=== PATIENT | female | born 1975 | race Caucasian/White ===

== ENCOUNTER 2018-04-26 15:55 | Inpatient (IN) | payer OTHER ==
--- NOTE | 2018-04-26 16:19 | ED PDOC ---
Arrival/HPI - General Chief Complaint: Weakness/Neurological Deficit Time Seen by Provider: 04/26/18 16:15 Historian: Patient - History of Present Illness Narrative History of Present Illness (Text): 04/26/18 16:38 Patient is a 43 year old female whose past medical history includes lupus, and rheumatic fever, who presents to the Emergency department complaining of left upper extremity and facial numbness which has been intermittent since 6 days ago. Patient reports that her first episode of left facial and upper extremity numbness occurred 6 days ago while she was sitting down and using the phone. At that time she also experienced dysarthria, and her symptoms resolved in less than a minute. She couldn't go to the hospital at that time because a family member had an appointment at the hospital the following day. While waiting at the hospital for the family member she experienced another episode of left upper extremity numbness which lasted for 2-3 hours. Today, patient was last well approximately 8 hours ago prior to experiencing left arm numbness and weakness. She also reports that approximately an hour ago she also started experiencing chest pressure. She currently states that her chest pressure, and left arm weakness and numbness has improved but not resolved. Notes that she is still experiencing slight left arm weakness and numbness. Patient denies fevers , chills, cough, shortness of breath, dyspnea on exertion, abdominal pain, nausea, vomiting, diarrhea, back pain, neck pain, headache, dizziness, or any other complaint. Of note patient states that she used to take medication for Lupus but doesn't currently take anything. PMD: not affiliated Time/Duration: Other (onset less than 8 hours ago) Symptom Onset: Sudden Symptom Course: Improving, Intermittent Context: Home Past Medical History - Provider Review Nursing Documentation Reviewed: Yes - Infectious Disease Hx of Infectious Diseases: None - Reproductive Menopause: Yes - Cardiac Hx Cardiac Disorders: No - Endocrine/Metabolic Hx Endocrine Disorders: Yes Hx Systemic Lupus Erythematosus: Yes - Musculoskeletal/Rheumatological Hx Falls: No - Gastrointestinal Hx Gastroesophageal Reflux: Yes - Psychiatric Hx Substance Use: No - Anesthesia Hx Anesthesia Reactions: No Family/Social History - Physician Review Nursing Documentation Reviewed: Yes Family/Social History: No Known Family HX Smoking Status: Former Smoker Hx Alcohol Use: No (social) Hx Substance Use: No Allergies/Home Meds Allergies/Adverse Reactions: Allergies Penicillins Allergy (Unknown, Verified 07/04/18 19:22) NAUSEA Home Medications: Home Meds Medication Instructions Recorded Confirmed No Known Home Med 08/31/17 04/26/18 Review of Systems - Physician Review All systems were reviewed & negative as marked: Yes - Review of Systems Constitutional: absent: Fevers Neurological: absent: Headache Physical Exam - Physical Exam Narrative Physical Exam (Text): 04/26/18 16:52 Constitutional: No acute distress. Head: Normocephalic. Atraumatic. Eyes: PERRL. ENT: Moist mucous membranes. Neck: Supple. Cardiovascular: Regular rate. Chest: No tenderness. Respiratory: Clear to auscultation bilaterally. GI: Soft. Nontender. Nondistended. Back: No CVA tenderness. Musculoskeletal: No tenderness or swelling of extremities. Skin: No rash. Neurologic: Alert. Left arm 4+/5 motor function. Subjective decreased sensation to light touch. Cranial nerve II-XII intact. Speech normal. Vital Signs Reviewed: Yes Vital Signs Temp Pulse Resp BP Pulse Ox 04/26/18 19:43 98 F 85 18 127/73 99 04/26/18 18:24 72 18 130/77 100 04/26/18 18:09 75 18 127/76 100 04/26/18 17:54 82 18 117/64 100 04/26/18 17:50 72 18 124/70 100 04/26/18 17:39 76 18 124/76 100 04/26/18 17:24 71 18 121/59 L 98 04/26/18 17:09 86 15 128/47 L 100 04/26/18 16:58 72 18 137/71 100 04/26/18 16:29 82 15 142/95 H 98 04/26/18 16:06 98.2 F 88 18 143/86 99 Temperature: Afebrile Blood Pressure: Normal Pulse: Regular Respiratory Rate: Normal Appearance: Positive for: Well-Appearing Mental Status: Positive for: Alert and Oriented X 3 Medical Decision Making ED Course and Treatment: 04/26/18 16:18 Impression: Patient is a 43 year old female who presents to the Emergency department complaining of intermittent left arm weakness and numbness, which started 6 days ago, and recent chest pressure. Differential Diagnosis included but are not limited to: CVA vs. TIA vs. ACS vs. Anxiety Plan: --EKG --Labs and cardiac enzyme --Blood work --Head CT without contrast --Chest X-ray --Aspirin --IV fluids -- Reassess and disposition Prior Visits: Notes and results from previous visits were reviewed. Progress Notes: 04/26/18 16:12 Code stroke called. 04/26/18 16:16 evaluated the patient and recommended head CT without contrast. He also recommends If CT is negative then Aspirin, echo, and hypercoagulable workup as inpatient. 04/26/18 16:27 called to state that head CT was negative. 04/26/18 16:[address] without Contrast: Dictator : Han Ballesteros MD IMPRESSION: No acute intracranial abnormalities. No significant findings to account for the clinical presentation. 04/26/18 17:09 Chest X-ray: Dictator : Han Ballesteros MD COMPARISON: 08/31/2017 IMPRESSION: No active disease. No significant interval change compared to the prior examination(s). 04/26/18 17:45 Discussed case with , who is aware and agrees to accept the patient under his service. 04/26/18 EKG shows NSR at [address]/T wave changes. Interpreted by me. - Lab Interpretations Lab Results: 04/26/18 16:15 04/26/18 16:15 Lab Results 04/26/18 17:33: Blood Type Confirm O POSITIVE 04/26/18 17:00: PT 11.3, INR 0.99, APTT 28.9 04/26/18 16:45: Beta HCG, Quant < 2.39 04/26/18 16:45: Blood Type O POSITIVE, Antibody Screen Negative, BBK History Checked No verified bt 04/26/18 16:15: Hemoglobin A1c 5.4 04/26/18 16:15: Sodium 141, Potassium 3.7, Chloride 106, Carbon Dioxide 25, Anion Gap 14, BUN 12, Creatinine 0.6 L, Est GFR ( Amer) > 60, Est GFR ( Non-Af Amer) > 60, Random Glucose 102, Calcium 9.4, Total Bilirubin 0.5, AST 24 , ALT 10, Alkaline Phosphatase 76, Troponin I < 0.01, Total Protein 7.4, Albumin 4.3, Globulin 3.1, Albumin/Globulin Ratio 1.4, Triglycerides 154, Cholesterol 213 H, LDL Cholesterol Direct 121, HDL Cholesterol 58 04/26/18 16:15: WBC 4.3 L D, RBC 3.93, Hgb 11.9 L, Hct 35.7 L, MCV 90.8, MCH 30.3, MCHC 33.3, RDW 13.1, Plt Count 146, MPV 13.9 H, Gran % 50.9, Lymph % (Auto ) 41.0 H, [place] % (Auto) 5.3, Eos % (Auto) 2.1, Baso % (Auto) 0.7, Gran # 2.20, Lymph # (Auto) 1.8, [place] # (Auto) 0.2, Eos # (Auto) 0.1, Baso # (Auto) 0.03 I have reviewed the lab results: Yes - RAD Interpretation Radiology Orders: 04/26/18 16:15 HEAD W/O (CODE STROKE) [CT] Stat 04/26/18 16:20 CHEST TWO VIEWS (PA/LAT) [RAD] Stat Squad Boss: Radiologist - EKG Interpretation Interpreted by ED Physician: Yes Type: 12 lead EKG - Medication Orders Current Medication Orders: Aspirin (Aspirin Chewable) 81 mg PO DAILY SYLVIE Atorvastatin Calcium (Lipitor) 40 mg PO DIN SYLVIE Sodium Chloride (Sodium Chloride 0.9%) 1,000 mls @ 100 mls/hr IV .Q10H SYLVIE Last Admin: 04/26/18 16:55 Dose: 100 mls/hr eMAR Start Stop Document 04/26/18 16:55 HI (Rec: 04/26/18 16:55 HI [id number]) Intravenous Solution Start Date 04/26/18 Start Time 16:55 Discontinued Medications Aspirin (Aspirin) 325 mg PO STAT STA Stop: 04/26/18 16:31 Last Admin: 04/26/18 16:53 Dose: 325 mg NIHSS Scale ([place]) Time Performed: 16:12 - How Severe is the Stoke Baseline Level of Consciousness: 0=Alert LOC to Questions: 0=Both comments correct LOC to commands: 0=Obeys both correctly Best Gaze: 0=Normal Visual: 0=No visual loss Facial: 0=Normal Motor Arm - Left: 0=No drift Motor Arm - Right: 0=No drift Motor Leg - Left: 0=No drift Motor Leg - Right: 0=No drift Limb Ataxia: 0=Absent Sensory: 1=Mild to moderate loss Best Language: 0=No aphasia Dysarthia: 0=Normal articulation Extinction & Inattention (Neglect): 0=Normal, no object Score: 1 Risk Level: Minor Stroke Risk rTPA Inclusion/Exclusion - Refusal of Treatment Patient Refused Treatment: No - Inclusion Criteria for Altepase Patient is 18 years or Older: Yes The Clinical Diagnosis of Ischemic Stroke That is Causing a Potentially Disabling Neurological Deficit: Yes Time of Onset is Well Established to be Less Than 270 Minute Before Treatment Would Begin: No Risk/Benefit Discussed With Patient/Family Member Present: Yes - Scribe Statement The provider has reviewed the documentation as recorded by the Scribe [place] Provider Scribe Attestation: All medical record entries made by the Scribe were at my direction and personally dictated by me. I have reviewed the chart and agree that the record accurately reflects my personal performance of the history, physical exam, medical decision making, and the department course for this patient. I have also personally directed, reviewed, and agree with the discharge instructions and disposition. Disposition/Present on Arrival - Present on Arrival Any Indicators Present on Arrival: No History of DVT/PE: No History of Uncontrolled Diabetes: No Urinary Catheter: No History of Decub. Ulcer: No History Surgical Site Infection Following: None - Disposition Have Diagnosis and Disposition been Completed?: Yes Diagnosis: Numbness of left hand Disposition: HOSPITALIZED Disposition Time: 17:30 Patient Plan: Admission, Telemetry Patient Problems: Current Active Problems Problem Status Onset Numbness of left hand Acute Condition: FAIR
--- NOTE | 2018-04-26 16:30 | CT ---
PROCEDURE: CT HEAD WITHOUT CONTRAST. HISTORY: code stroke COMPARISON: None available. TECHNIQUE: Axial computed tomography images were obtained through the head/brain without intravenous contrast. Radiation dose: Total exam DLP = 882.53 MGy-cm. This CT exam was performed using one or more of the following dose reduction techniques: Automated exposure control, adjustment of the mA and/or kV according to patient size, and/or use of iterative reconstruction technique. FINDINGS: HEMORRHAGE: No intracranial hemorrhage. BRAIN: No mass effect or edema. No atrophy or chronic microvascular ischemic changes. VENTRICLES: Unremarkable. No hydrocephalus. CALVARIUM: Unremarkable. PARANASAL SINUSES: Unremarkable as visualized. No significant inflammatory changes. MASTOID AIR CELLS: Unremarkable as visualized. No inflammatory changes. OTHER FINDINGS: None. IMPRESSION: No acute intracranial abnormalities. No significant findings to account for the clinical presentation. Code stroke protocol: Study completed 16:22 Radiologist notified 16:22 Results conveyed verbally at 16:27 I discussed the findings with the attending physician in the emergency department Dr. Todd Alas. Interpretation finalized and available for review 16:29
[2018-04-26 16:41] LABS: BASO # 0.03 K/mm3 (0.0-2.0); BASO % 0.7 % (0.0-3.0); EOS # 0.1 (0.0-0.7); EOS % 2.1 % (1.5-5.0); GRAN # 2.2 (1.4-6.5); GRAN % 50.9 % (50.0-68.0); HEMOGLOBIN 11.9 g/dL (12.0-16.0); LYMPH # 1.8 (1.2-3.4); MEAN CELL VOLUME 90.8 fl (80.0-105.0); MEAN CORPUSCULAR HEMOGLOBIN 30.3 pg (25.0-35.0); MEAN CORPUSCULAR HGB CONC 33.3 g/dl (31.0-37.0); MEAN PLATELET VOLUME 13.9 fl (7.0-11.0); MONO # 0.2 (0.1-0.6); MONO % 5.3 % (1.0-6.0); RBC 3.93 10^6/uL (3.5-6.1); RED CELL DISTRIBUTION WIDTH 13.1 % (11.5-14.5); WHITE BLOOD COUNT 4.3 10^3/ul (4.5-11.0)
--- NOTE | 2018-04-26 16:43 | CP.PCM.CON ---
History of Present Illness - History of Present Illness History of Present Illness: Neurology Consultation Note: Ms. Arrington is a 43-year-old woman with a past medical history of SLE (not on medications), who states that last , as she was taking her daughter to the hospital for her brain surgery, she felt left arm, face numbness and had speech difficulty. This resolved completely. She did not come to the hospital because of her daughter's situation. Then this morning, she had left hand numbness and this concerned her so she came to the ED. She states that it is mostly in her thumb. The rest of the arm was unaffected when I saw her. NIHSS was maybe a 1. She was outside the time window for IV tPA since her symptoms started over 4.5 hours ago and her symptoms are very mild. CT scan of the head did not show any acute findings. Review of Systems - Review of Systems All systems: reviewed and no additional remarkable complaints except Past Patient History - Infectious Disease Hx of Infectious Diseases: None - Past Social History Smoking Status: Former Smoker - CARDIAC Hx Cardiac Disorders: No - ENDOCRINE/METABOLIC Hx Endocrine Disorders: Yes Hx Systemic Lupus Erythematosus: Yes - MUSCULOSKELETAL/RHEUMATOLOGICAL Hx Falls: No - GASTROINTESTINAL Hx Gastroesophageal Reflux: Yes - PSYCHIATRIC Hx Substance Use: No - ANESTHESIA Hx Anesthesia Reactions: No Meds Allergies/Adverse Reactions: Allergies Allergy/AdvReac Type Severity Reaction Status Date / Time Penicillins Allergy URTICARIA Verified 08/31/17 14:35 - Medications Medications: Current Medications Aspirin (Aspirin) 325 mg PO STAT STA Stop: 04/26/18 16:31 Sodium Chloride (Sodium Chloride 0.9%) 1,000 mls @ 100 mls/hr IV .Q10H SYLVIE Physical Exam - Neurological Exam Neurological exam: Alert, CN II-XII Intact, Normal Gait, Oriented x3, Reflexes Normal Additional comments: CN 2-12 are intact, no facial asymmetry and no dysarthria/aphasia noted. Mild left hand numbness as compared with right. Otherwise, no focal sensory changes, no weakness, no ataxia, no visual changes, reflexes are normal. Results - Vital Signs Recent Vital Signs: Last Vital Signs Temp 98.2 F 04/26/18 16:06 Pulse 88 04/26/18 16:06 Resp 18 04/26/18 16:06 BP 143/86 04/26/18 16:06 Pulse Ox 99 04/26/18 16:06 Assessment & Plan (1) Numbness of left hand Assessment and Plan: This is unlikely to be a stroke, but since she had another episode on that involved complete left side numbness and dysarthria, further work-up is warranted. Her symptoms are not completely resolved this time, so we cannot call this a TIA at this point. I recommend the followin. Telemetry 2. MRI brain without contrast 3. Echocardiogram 4. Aspirin 81 mg daily (first dose now) 5. PT/OT eval 6. Check B12, folate, HbA1c, Lipid panel, homocysteine, hypercoagulable work-up 7. Fluids with NS at 100 ml/hr 8. Permissive HTN (only treat BP that is higher than 220/110 mm Hg for the next 24 hours) 9. Case management and case management social worker consult Thank you. Status: Acute Priority: High
[2018-04-26 16:51] LABS: ALB/GLOB RATIO 1.4 (1.1-1.8); ALBUMIN 4.3 g/dL (3.0-4.8); ALT/SGPT 10 U/L (7-56); AST/SGOT 24 U/L (14-36); BLOOD UREA NITROGEN 12 mg/dL (7-21); CALCIUM 9.4 mg/dL (8.4-10.5); GFR AFRICAN-AMERICAN > 60; GFR NON-AFRICAN AMERICAN > 60; HDL CHOLESTEROL 58 mg/dL (29-60)
[2018-04-26] MEDS: Sodium Chloride 0.9% 1,000 ML IV SCH (16:55)
[2018-04-26 17:02] LABS: LDL CHOLESTEROL 121 mg/dL (0-129)
[2018-04-26 17:05] LABS: TROPONIN I < 0.01 ng/mL
--- NOTE | 2018-04-26 17:07 | RAD ---
HISTORY: code stroke COMPARISON: 08/31/2017 TECHNIQUE: Chest PA and lateral FINDINGS: LUNGS: No active pulmonary disease. PLEURA: No significant pleural effusion identified. No pneumothorax apparent. CARDIOVASCULAR: Normal. OSSEOUS STRUCTURES: No significant abnormalities. VISUALIZED UPPER ABDOMEN: Normal. OTHER FINDINGS: None. IMPRESSION: No active disease. No significant interval change compared to the prior examination(s).
[2018-04-26 17:13] LABS: INR 0.99 (0.93-1.08); PARTIAL THROMBOPLASTIN TIME 28.9 Seconds (25.1-36.5); PROTHROMBIN TIME 11.3 SECONDS (9.4-12.5)
--- NOTE | 2018-04-26 18:45 | CP.PCM.HP ---
<Nazario Ramos - Last Filed: 04/26/18 21:31> History of Present Illness - History of Present Illness History of Present Illness: CC: Left upper extremity and left facial numbness, chest tighness Ms. Arrington is a 43 year old female with past medical history of lupus not on medication, migraines, panic attacks, and rheumatic fever as a child. Patient presents to the emergency department complaining of facial numbness and left upper extremity tingling and numbness. Patient stated that this was the second time this has happened. The first time was 6 days ago while she was sitting down and on the phone where she suddenly felt numbness to both her left side of the face and left arm. The patient also experienced dysarthria and was mumbling on the phone. The patient stated that her symptoms lasted for less than a minute. She did not go to the hospital because one of her children was sick and had an appointment to go to the hospital the following day. This morning, the patient started having the facial numbness and arm numbness and decided to go to the emergency room. She is also complaining of chest tightness that started a few hours ago. Patient states that her chest tightness, left facial numbness, and left extremity numbness has improved but not yet resolved. Patient denies having any fevers, chills, cough, shortness of breath, abdominal pain, nausea, vomiting, diarrhea, or dysuria. At the time of encounter with the patient she has no complaint of chest tightness. In Ed, patient afebrile, blood pressure was 143/86. Code stroke was called, patient was evaluated by neurologist. Head CT was negative. 12 point ROS obtained and negative, except as per HPI. PMH: Lupus not on medication, migraines, panic attacks, and rheumatic fever as a child PSH: Removal of cyst on the chest All: Penicillin FHx: Father had rheumatic fever. SHx: Former smoker, denies alcohol/Illicits/IVDA OBHx: LMP was 4 months ago. test was done and was negative and that she has irregular menstrual cycle. PMD: Dr. Ron in [place] [phone] Rheum: Dr. Gomes Meds: Multivitamins Present on Admission - Present on Admission Any Indicators Present on Admission: No History of DVT/PE: No History of Uncontrolled Diabetes: No Urinary Catheter: No Decubitus Ulcer Present: No History Surgical Site Infection Following: None Review of Systems - Review of Systems Review of Systems: as per HPI - Constitutional Constitutional: As Per HPI Past Patient History - Past Social History Smoking Status: Former Smoker Chewing Tobacco Use: No Cigar Use: No Occupation: Unemployed Alcohol: None Drugs: Denies - CARDIAC Hx Cardiac Disorders: No - PULMONARY Hx Respiratory Disorders: No - NEUROLOGICAL Hx Neurological Disorder: Yes Hx Migraine: Yes - HEENT Hx HEENT Problems: No - RENAL Hx Chronic Kidney Disease: No - ENDOCRINE/METABOLIC Hx Endocrine Disorders: Yes Hx Systemic Lupus Erythematosus: Yes - HEMATOLOGICAL/ONCOLOGICAL Hx Blood Disorders: No - INTEGUMENTARY Hx Dermatological Problems: No - MUSCULOSKELETAL/RHEUMATOLOGICAL Hx Musculoskeletal Disorders: Yes (SLE) - GASTROINTESTINAL Hx Gastrointestinal Disorders: No - GENITOURINARY/GYNECOLOGICAL Hx Genitourinary Disorders: No - PSYCHIATRIC Hx Psychophysiologic Disorder: Yes Hx Panic Symptoms: Yes Hx Substance Use: No - SURGICAL HISTORY Hx Surgeries: Yes (Removal of chest cyst) - ANESTHESIA Hx Anesthesia Reactions: No Meds Allergies/Adverse Reactions: Allergies Allergy/AdvReac Type Severity Reaction Status Date / Time Penicillins Allergy Unknown NAUSEA Verified 04/26/18 19:22 Physical Exam - Constitutional Appears: Well, No Acute Distress - Head Exam Head Exam: ATRAUMATIC, NORMAL INSPECTION - Eye Exam Eye Exam: Normal appearance, PERRL - ENT Exam ENT Exam: Mucous Membranes Moist - Neck Exam Neck exam: Positive for: Normal Inspection - Respiratory Exam Respiratory Exam: Clear to Auscultation Bilateral, NORMAL BREATHING PATTERN - Cardiovascular Exam Cardiovascular Exam: REGULAR RHYTHM, +S1, +S2 - GI/Abdominal Exam GI & Abdominal Exam: Normal Bowel Sounds, Soft. absent: Tenderness - Extremities Exam Extremities exam: Positive for: normal inspection. Negative for: calf tenderness Additional comments: no cyanosis, no edema - Neurological Exam Neurological exam: Alert, Oriented x3 Additional comments: No facial asymmetry, no dysarthria or aphasia Upper and lower extremity muscle strength 5/5 bilaterally No sensory deficit of the left hand - Psychiatric Exam Psychiatric exam: Normal Affect, Normal Mood - Skin Skin Exam: Dry, Normal Color, Warm Results - Vital Signs Recent Vital Signs: Last Vital Signs Temp 98.2 F 04/26/18 16:06 Pulse 88 04/26/18 16:06 Resp 18 04/26/18 16:06 BP 143/86 04/26/18 16:06 Pulse Ox 99 04/26/18 16:06 - Labs Result Diagrams: 04/26/18 16:15 04/26/18 16:15 Labs: Laboratory Results - last 24 hr 04/26/18 17:56 Urine HCG, Qual Negative Assessment & Plan - Assessment and Plan (Free Text) Assessment: Assessment: 43 year old female patient with PMH of SLE not on medication, migraines, rheumatic fever, and panic attacks presents for left facial and left upper extremity numbness and chest tightness. Left facial and left upper extremity numbness - Rule out stroke vs TIA - Head CT negative - ASA - NIHSS was 1 - Neuro consulted. recs are appreciated Chest tightness - 2/2 panic attacks. r/o ACS - Chest xray negative - EKG: NSR at [address]/T wave changes, no arrhythmia - TroponinI negative in the ED, will trend troponin. - ASA ordered already SLE - Not on medication, patient was on medication but stopped taking them 3 years ago due to hyperpigmentation of the face. - Hypercoagulable panel ordered - Patient sees a dental manager outside- Dr. Gomes Hyperlipidemia - Atorvastatin 40mg - Date & Time Date: 04/26/18 Time: 19:31 <Josy Rothman - Last Filed: 04/27/18 00:46> Results - Vital Signs Recent Vital Signs: Last Vital Signs Temp 98 F 04/26/18 23:16 Pulse 62 04/26/18 23:16 Resp 18 04/26/18 23:16 BP 114/72 04/26/18 23:16 Pulse Ox 99 04/26/18 19:43 - Labs Result Diagrams: 04/26/18 16:15 04/26/18 16:15 Labs: Laboratory Results - last 24 hr 04/26/18 17:56 Urine HCG, Qual Negative Attending/Attestation - Attestation I have personally seen and examined this patient.: Yes I have fully participated in the care of the patient.: Yes I have reviewed all pertinent clinical information: Yes Notes (Text): 04/27/18 00:41 Patient seen with the resident at the bedside. Addendum: GI/DVT prophylaxis covered with Protonix and SCDs.Agree with assessment and plan of treatment.
[2018-04-26 19:45] VITALS: O2SAT 99
[2018-04-27] MEDS: Sodium Chloride 0.9% 1,000 ML IV SCH (05:34)
[2018-04-27 05:58] LABS: MEAN CELL VOLUME 90.4 fl (80.0-105.0); MEAN CORPUSCULAR HEMOGLOBIN 30.2 pg (25.0-35.0); MEAN CORPUSCULAR HGB CONC 33.4 g/dl (31.0-37.0); MEAN PLATELET VOLUME 13.4 fl (7.0-11.0); RBC 3.97 10^6/uL (3.5-6.1); RED CELL DISTRIBUTION WIDTH 13.2 % (11.5-14.5)
[2018-04-27] MEDS ORDERED: Pantoprazole 40 mg EC Tab PO SCH (06:00)
[2018-04-27 06:03] VITALS: BP 117/75; RESP 19; TEMP 98.5
[2018-04-27 06:11] LABS: BLOOD UREA NITROGEN 8 mg/dL (7-21); GFR AFRICAN-AMERICAN > 60; GFR NON-AFRICAN AMERICAN > 60
[2018-04-27 06:21] LABS: TROPONIN I < 0.01 ng/mL
[2018-04-27 10:18] VITALS: PULSE 61
[2018-04-27 12:15] LABS: FOLATE 16.3 ng/mL
--- NOTE | 2018-04-27 12:48 | CARD ---
APPROVED REPORT EKG Measurement Heart [id number] <Conclusion> Normal sinus rhythm Small inferior q waves Normal ECG
--- NOTE | 2018-04-27 16:41 | CP.PCM.DIS ---
Provider - Provider Date of Admission: 04/26/18 17:52 Attending physician: Hyun Curran MD [place] [facility] Course - Lab Results Lab Results: Most Recent Lab Values WBC 5.0 10^3/ul (4.5-11.0) 04/27/18 05:35 RBC 3.97 10^6/uL (3.5-6.1) 04/27/18 05:35 Hgb 12.0 g/dL (12.0-16.0) 04/27/18 05:35 Hct 35.9 % (36.0-48.0) L 04/27/18 05:35 MCV 90.4 fl (80.0-105.0) 04/27/18 05:35 MCH 30.2 pg (25.0-35.0) 04/27/18 05:35 MCHC 33.4 g/dl (31.0-37.0) 04/27/18 05:35 RDW 13.2 % (11.5-14.5) 04/27/18 05:35 Plt Count 134 10^3/uL (120.0-450.0) 04/27/18 05:35 MPV 13.4 fl (7.0-11.0) H 04/27/18 05:35 Gran % 50.9 % (50.0-68.0) 04/26/18 16:15 Lymph % (Auto) 41.0 % (22.0-35.0) H 04/26/18 16:15 [place] % (Auto) 5.3 % (1.0-6.0) 04/26/18 16:15 Eos % (Auto) 2.1 % (1.5-5.0) 04/26/18 16:15 Baso % (Auto) 0.7 % (0.0-3.0) 04/26/18 16:15 Gran # 2.20 (1.4-6.5) 04/26/18 16:15 Lymph # (Auto) 1.8 (1.2-3.4) 04/26/18 16:15 [place] # (Auto) 0.2 (0.1-0.6) 04/26/18 16:15 Eos # (Auto) 0.1 (0.0-0.7) 07/04/18 16:15 Baso # (Auto) 0.03 K/mm3 (0.0-2.0) 04/26/18 16:15 PT 11.3 SECONDS (9.4-12.5) 04/26/18 17:00 INR 0.99 (0.93-1.08) 04/26/18 17:00 APTT 28.9 Seconds (25.1-36.5) 04/26/18 17:00 Sodium 140 mmol/L (132-148) 04/27/18 05:35 Potassium 3.8 mmol/L (3.6-5.0) 04/27/18 05:35 Chloride 108 mmol/L (98-107) H 04/27/18 05:35 Carbon Dioxide 22 mmol/L (21-33) 04/27/18 05:35 Anion Gap 14 (10-20) 04/27/18 05:35 BUN 8 mg/dL (7-21) 04/27/18 05:35 Creatinine 0.6 mg/dl (0.7-1.2) L 04/27/18 05:35 Est GFR ( Amer) > 60 04/27/18 05:35 Est GFR (Non-Af Amer) > 60 04/27/18 05:35 POC Glucose (mg/dL) 81 mg/dL (65-110) 04/27/18 07:26 Random Glucose 87 mg/dL (70-110) 04/27/18 05:35 Hemoglobin A1c 5.4 % (4.2-6.5) 04/27/18 05:35 Calcium 9.0 mg/dL (8.4-10.5) 04/27/18 05:35 Total Bilirubin 0.5 mg/dL (0.2-1.3) 04/26/18 16:15 AST 24 U/L (14-36) 04/26/18 16:15 ALT 10 U/L (7-56) 04/26/18 16:15 Alkaline Phosphatase 76 U/L (38-126) 04/26/18 16:15 Troponin I < 0.01 ng/mL 04/27/18 05:35 Total Protein 7.4 g/dL (5.8-8.3) 04/26/18 16:15 Albumin 4.3 g/dL (3.0-4.8) 04/26/18 16:15 Globulin 3.1 gm/dL 04/26/18 16:15 Albumin/Globulin Ratio 1.4 (1.1-1.8) 04/26/18 16:15 Triglycerides 154 mg/dL (35-160) 04/26/18 16:15 Cholesterol 213 mg/dL (130-200) H 04/26/18 16:15 LDL Cholesterol Direct 121 mg/dL (0-129) 04/26/18 16:15 HDL Cholesterol 58 mg/dL (29-60) 04/26/18 16:15 Vitamin B12 371 pg/mL (239-931) 04/27/18 05:35 Folate 16.3 ng/mL 04/27/18 05:35 TSH 3rd Generation 2.07 mIU/mL (0.46-4.68) 04/27/18 08:15 Beta HCG, Quant < 2.39 mIU/mL (0-6.15) 04/26/18 16:45 Urine HCG, Qual Negative (NEGATIVE) 04/26/18 17:56 Blood Type O POSITIVE 04/26/18 16:45 Blood Type Confirm O POSITIVE 04/26/18 17:33 Antibody Screen Negative 04/26/18 16:45 BBK History Checked No verified bt 04/26/18 16:45 Discharge Exam - Head Exam Head Exam: ATRAUMATIC, NORMAL INSPECTION Discharge Plan - Follow Up Plan Condition: FAIR Disposition: HOME/ ROUTINE
--- NOTE | 2018-04-27 16:55 | MRI ---
PROCEDURE: MRI BRAIN WITHOUT CONTRAST HISTORY: r/o CVA COMPARISON: None. TECHNIQUE: Multiplanar, multisequence MR images of the brain were obtained without intravenous contrast enhancement. FINDINGS: HEMORRHAGE: None DWI: No evidence of an acute or early subacute infarction. BRAIN PARENCHYMA: Intrinsic signal throughout the nye and white matter structures above below the tentorium appears within normal limits including the brainstem. There is no mass effect, parenchymal edema or loss of the corticomedullary differentiation. Midline brain anatomy appears within normal limits including the corpus callosum, brainstem and craniocervical junction. There is no suspicious extra-axial fluid collection identified. VENTRICLES: Unremarkable. No hydrocephalus. CRANIUM: Unremarkable. ORBITS: Grossly unremarkable. PARANASAL SINUSES/MASTOIDS: Clear VASCULAR SYSTEM: Skull base flow voids intact. OTHER FINDINGS: None. IMPRESSION: Unremarkable non contrast enhanced MRI of the brain.
--- NOTE | 2018-04-27 17:24 | CON ---
REASON FOR CONSULTATION: Followup cardiac evaluation, chest tightness and tingling sensation in both hands. BRIEF CLINICAL HISTORY: This is a 43-year-old female with past medical history significant for migraine, questionable history of rheumatic heart disease as a young, who had last 1 week stressful situation at home. Daughter was going for brain surgery for pituitary tumor and she noticed numbness of the left side of the face and tingling sensation in the hand and then slurring of speech last , which completely recovered very fast, the slurring, but numbness took a little time and after that it completely resolved as well. The patient did not seek any medical help because the daughter has to go for surgery in the morning. Since then, the patient has been fairly stable. The patient's daughter's surgery went well, but yesterday the patient has tingling sensation in both hands and some tightness in the chest, so came to the emergency room. Denies any prior episode of chest pain. Denies any prior episode of shortness of breath or palpitation or dyspnea on exertion. The patient lives in an apartment in second floor, takes stairs, denies any chest pain. PAST MEDICAL HISTORY: Significant for migraine, takes Tylenol every now and then; questionable history of rheumatic fever as a child. FAMILY HISTORY: Significant for rheumatic heart disease, valvular heart disease in the father. No history of coronary artery disease or diabetes in family. SOCIAL HISTORY: The patient does smoke. Denies any history of alcohol abuse. Denies any substance abuse. CURRENT MEDICATIONS: Tylenol off and on. REVIEW OF SYSTEMS: As per HPI. PHYSICAL EXAMINATION: VITAL SIGNS: Height of the patient 5 feet and 4 inches. Weight of the patient 140 pounds. Body mass index 24.1 kg/m2. Rest of the examination, vital signs as follows; temperature afebrile, heart rate 54, blood pressure 117/75. HEENT: PERRLA. Extraocular muscles intact. NECK: Supple. No carotid bruit. No thyromegaly. CHEST: Clear to auscultation. HEART: S1 and S2 regular. ABDOMEN: Soft. EXTREMITIES: Clubbing and cyanosis negative. LABORATORY DATA: EKG shows normal sinus. No acute ST-T changes noted. Blood workup, WBC 5, hemoglobin 12, hematocrit 35.9, platelet count 134. Chemistry: Sodium 140, potassium , chloride 108, carbon dioxide 22, anion gap of 14, BUN 0.6. Troponin 0.01 x3 negative. IMPRESSION: Possibly it is related to stressful situation, but the patient complained of weak after the chest pain. Need to rule out underlying coronary artery disease. RECOMMENDATION: We will get lipid profile, TSH, hemoglobin A1c. We will get echo to assess the valvular function and order stress test if we can accommodate today to rule out any significant CAD. We will follow with you. We will keep n.p.o. and supplement potassium. Also, suggest Neuro evaluation. Thank you, Dr. Curran, for providing us the opportunity in taking care of the patient, Bianca Arrington. Kierra Monk MD
--- NOTE | 2018-04-27 17:58 | CARD ---
APPROVED REPORT EXAM: Two-dimensional and M-mode echocardiogram with Doppler and color Doppler. INDICATION CP/LVFX 2D DIMENSIONS Left Atrium (2D)4.0 (1.6-4.0cm)IVSd0.9 (0.7-1.1cm) LVDd4.3 (3.9-5.9cm)PWd1.1 (0.7-1.1cm) LVDs3.0 (2.5-4.0cm)FS (%) 30.9 % LVEF (%)58.9 (>50%) M-Mode DIMENSIONS Aortic Root2.90 (2.2-3.7cm)Aortic Cusp Exc.1.80 (1.5-2.0cm) Aortic Valve AoV Peak Pxlzwdjx236.0cm/Joshua Peak GR.10mmHg Mitral Valve MV E Hguxdcrp79.0cm/sMV A Akpnzqki54.7cm/sE/A ratio1.2 TDI Lateral E' Peak V16.20cm/sMedial E' Peak V9.46cm/sE/Lateral E'4.8 E/Medial E'8.2 Pulmonary Valve PV Peak Kkmdjauf88.2cm/sPV Peak Grad.1mmHg Tricuspid Valve TR Peak Dcxwakdv083eh/sRAP UKVQRWXN86nzYmKN Peak Gr.26mmHg [id number] LEFT VENTRICLE The left ventricle is normal size. There is normal left ventricular wall thickness. The left ventricular function is normal.EF-55-60% There is normal LV segmental wall motion. The left ventricular diastolic function is normal. No left ventricle thrombus noted on this study. There is no ventricular septal defect visualized. There is no left ventricular aneurysm. There is no mass noted in the left ventricle. RIGHT VENTRICLE The right ventricle is normal size. There is normal right ventricular wall thickness. The right ventricular systolic function is normal. ATRIA The left atrium is borderline dilated. The right atrium size is normal. The interatrial septum is intact with no evidence for an atrial septal defect. AORTIC VALVE The aortic valve is normal in structure. No aortic regurgitation is present. There is no aortic valvular stenosis. There is no aortic valvular vegetation. MITRAL VALVE The mitral valve is thickened but opens well. Mitral regurgitation is trace to mild. There is no mitral valve stenosis. There is no evidence of mitral valve prolapse. TRICUSPID VALVE The tricuspid valve leaflets are thickened , but open well. There is trace to mild tricuspid regurgitation.RVSP-36 mmof Hg. There is no tricuspid valve stenosis. There is no tricuspid valve prolapse or vegetation. PULMONIC VALVE The pulmonary valve is normal in structure. There is no pulmonic valvular regurgitation. There is no pulmonic valvular stenosis. GREAT VESSELS The aortic root is normal in size. The ascending aorta is normal in size. The pulmonary artery is normal. The IVC is normal in size and collapses >50% with inspiration. PERICARDIAL EFFUSION There is no pleural effusion. There is no pericardial effusion. <Conclusion> Baylee chamber size. Ef-55-60%. Trace to Mild MR/TR RVSP-36 mmof Hg. The IVC is normal in size and collapses >50% with inspiration. There is no pericardial effusion. The IVC is normal in size and collapses >50% with inspiration.
--- NOTE | 2018-04-27 22:03 | CARD ---
APPROVED REPORT Protocol: JAY Test Type: Sestamibi Stress Test Attending Physician: Dr. Kierra Monk Referring Physician: Dr. Hyun Curran Test Indications: Chest Pain Height:5 ft 4 in Weight:142lbs Medications: Aspirin, Lipitor, Protonix Medical History: 43 y/o female with a history of lupus, migraines, rheumatic fever Target HR: 176 bpm Resting ECG: normal Resting Heart Rate: 77 bpm Resting Blood Pressure: 110/80mmHg Submaximum (85%): 150 bpm POST EXERCISE Reason for Termination: Fatigue Target HR: No Max HR: 173 bpm 100% of Maximum Predicted HR: 176 bpm Exercise duration: 10:00 min:sec, 4 Stage Exercise capacity: 11.7METs Max Blood Pressure: 126/70mmHg Blood Pressure response to exercise: normal resting BP - appropriate response Heart Rate response to exercise: appropriate Chest Pain: No, none Angina index: 0 Arrhythmia: No, none ST Change: No, none Deviation: 0 mm TEST SUMMARY [id number]:200.00.01.063/.0. [id number]:[id number]/80.0. PRETESTHYPERV.00:020.00.01.102253/80.0. PRETESTWARM-UP29:550.10.01.756743/80.0. EXERCISESTAGE 103:001.710.04.805680/80.0. EXERCISESTAGE 203:[id number]/70.0. EXERCISESTAGE 303:[id number]/70.0. EXERCISESTAGE 401:[id number]/70.0. KRTIBFPJ80:[id number]/60.0. INTERPRETATION Stress EKG Conclusion: Negative Stress test for Ischemia and for chest pain,Nuclear scan to follow. Signed by Kierra Monk Electronically Approved: 04/27/2018 12:32:06 EXAM: Myocardial Perfusion REST/STRESS Stress Test Type: Exercise Treadmill Imaging Protocol The imaging protocol used to acquire images was Rest Tc-99m/stress Tc-99m 1 day Rest Spect myocardial perfusion imaging was performed in supine position 41 minutes following the injection of 10.3 mCi of Tc-99 Myoview. At peak stress, the patient was injected intravenously with 30.5mCi of Tc-99 tetrofosmin after an exercise time of 10 minutes and 0 seconds. Gated Stress Spect was performed 54 minutes after intravenous Tc-99 Myoview injection. The images were gated to evaluate regional wall motion and calculate ventricular ejection fraction.Images were reconstructed using backfilter projection method in short horizontal and verticle long axis. Spect slices were generated. LV Perfusion The quality of the study is good. The left ventricle is normal in size. The right ventricle is unremarkable. The lung uptake is within normal limits. The distribution of tracer reveals normal uptake pattern throughout the LV myocardium on the stress study. The rest myocardial perfusion study shows no significant change. Wall Motion Wall motion study shows good contractility of the left ventricle. LVEF = 60%. Conclusion 1. Normal SPECT myocardial perfusion study. 2. Normal gated wall motion of the left ventricle.
[2018-04-28 19:18] LABS: CARDIOLIPIN AB (IGA) <11 APL (<=11)
[2018-04-29 21:53] LABS: CARDIOLIPIN AB (IGA) <11 APL (<=11); CARDIOLIPIN AB (IGG) <14 GPL (<=14)
[2018-04-29 23:02] LABS: PHOSPHATIDYLSERINE AB IGG <10 U/mL (<10); PHOSPHATIDYLSERINE AB IGM <25 U/mL (<25)
[2018-04-29 23:41] LABS: B2 GLYCOPROTEIN I AB(IGA) <9 SAU (<=20); B2 GLYCOPROTEIN I AB(IGG) <9 SGU (<=20); B2 GLYCOPROTEIN I AB(IGM) <9 SMU (<=20); CARDIOLIPIN AB (IGM) <12 MPL (<=12); PHOSPHATIDYLSERINE AB IGA <20 U/mL (<20)
== END 2018-04-27 20:07 | disposition home or self-care (01) | DRG 93 ==
LOC: ED 15:55 → ERH 17:52 → 2RNO 20:22
PROVIDERS: ADMIT Internal Medicine; ATTEND Internal Medicine
DX: R20.0 Anesthesia of skin (principal); R07.89 Other chest pain; F41.0 Panic disorder [episodic paroxysmal anxiety]; M32.9 Systemic lupus erythematosus, unspecified; E78.5 Hyperlipidemia, unspecified; I10 Essential (primary) hypertension; K21.9 Gastro-esophageal reflux disease without esophagitis; F17.200 Nicotine dependence, unspecified, uncomplicated; G43.909 Migraine, unspecified, not intractable, without status migrainosus; Z79.82 Long term (current) use of aspirin; Z88.0 Allergy status to penicillin